=== PATIENT | male | born 1955 | race Caucasian/White ===

== ENCOUNTER 2020-02-02 12:55 | Outpatient (REF) | payer MEDICARE, MEDICAID, SELFPAY ==
--- NOTE | 2020-02-02 12:27 | LYM_PTH ---
PATIENT: James Brown LOC: [facility] U#:[id number] AGE/SX: 64/M ROOM: RE02/02/[address]: Isac Quinones MD : 1955 BED: DIS: 02/02/2020 SPEC #: [id number] RECD: 02/02/20 13:10 STATUS: REFUGIO REQ #: [id number] FRANCISCO: 02/02/20 12:[address]: Isac Quinones DEPT: Surgical Specimen RECD BY: Maureen Wheeler ENTERED: 02/02/20 13:11 SP TYPE: LYM OTHR DR: Unknown,Unknown Tissues: 1 - LYMPH NODE BIOPSY 2 - FLOW CYTOMETRY NODE/TISSUE Procedures: GROSS AND MICRO LEVEL 4 IMMUNOPEROXIDASE STAIN FLOW CYTOMETRY LYMPHOMA PNL Comments: [id number] (FLOW - [id number]) (CYTOGENETICS - [id number]) (CYTOGENETICS - INSUFFICIENT FOR FISH STUDIES)
== END 2020-02-02 13:15 ==
LOC: LBN 12:55
PROVIDERS: Visit Provider Otolaryngology
DX: R59.0 Localized enlarged lymph nodes (principal); R22.1 Localized swelling, mass and lump, neck; C83.31 Diffuse large B-cell lymphoma, lymph nodes of head, face, and neck
CPT/HCPCS: 88305; 88184; 88185; 88304; 88361

== ENCOUNTER 2020-03-07 04:13 | Outpatient (RCR) | payer MEDICARE, MEDICAID, SELFPAY ==
[2020-03-07 13:13] LABS: Abs Immature Grans 0.06 k/cumm (0.0-0.09); Absolute Basophil Count 0.05 k/cumm (0.0-0.2); Absolute Eosinophil Count 0.12 k/cumm (0.0-0.7); Absolute Lymphocyte Count 2.91 k/cumm (1.2-3.4); Absolute Monocyte Count 0.87 k/cumm (0.11-0.7); Basophils % 0.5; Eosinophils % 1.1; HCT 44.5 % (40.0-50.0); HGB 15.4 g/dL (13.5-17.5); Immature Grans % 0.6 %; Lymphocytes % 26.7; Mean Corp. HGB Concentration 34.6 g/dL (32.0-36.0); Mean Corpuscular Hemoglobin 31.6 pg (27.0-33.0); Mean Corpuscular Volume 91.2 fL (80-95); Mean Platelet Volume 9.9 fL (8.0-11.0); Neutrophils % 63.1; Platelet Count 195 x1000/uL (130-400); RBC 4.88 m/cumm (4.50-6.00); RBC Distribution Width 12.4 % (11.8-14.1); White Blood Cell Count 10.89 k/cumm (4.4-10.8)
[2020-03-07 13:15] LABS: Absolute Neutrophil Count 6.87 k/cumm (1.2-6.7)
[2020-03-07 13:50] LABS: ALT 46 U/L (16-63); AST 38 U/L (15-37); Albumin 3.5 g/dL (3.4-5.0); Alkaline Phosphatase 103 U/L (46-116); Anion Gap 8.7 mmol/L (3-11); BUN 24 mg/dL (7-18); Bilirubin, Total 1.3 mg/dL (0.2-1.0); CO2 26.3 mmol/L (21.0-32.0); CREATININE 0.88 mg/dL (0.70-1.30); Calcium 9.2 mg/dL (8.5-10.1); Chloride 99 mmol/L (98-107); Glucose 83 mg/dL (74-106); LDH 470 U/L (85-227); Potassium 3.8 mmol/L (3.5-5.1); Sodium 134 mmol/L (136-145); Total Protein 7.1 g/dL (6.4-8.2); Uric Acid 4.7 mg/dL (3.5-7.2)
[2020-03-08 09:10] LABS: HBs Antibody, Quant <3.1 mIU/mL (See Note); Hepatitis B Surface Ab Negative (See Note); Hepatitis B Surface Ag Negative (Negative)
[2020-03-08 10:06] LABS: Hep B Core Antibody Positive (Negative); Hepatitis C Ab w Rflx HCV PCR Reactive (Negative)
[2020-03-08 10:20] LABS: HIV-1/2 Ag & Ab Screen Negative (Negative)
[2020-03-08 11:23] LABS: IgA 410 mg/dL (85-499); IgG 718 mg/dL (610-1,616); IgM 255 mg/dL (35-242)
[2020-03-09 16:22] LABS: Albumin 56.4 % (55.8-66.1); Comment (See Note); Total Protein 6.7 g/dL (6.3-8.2)
[2020-03-12 15:12] LABS: HCV RNA Qualitative Detected (Undetected)
[2020-03-12 15:35] LABS: Immunotyping, Serum (See Note)
== END 2020-03-08 23:59 | disposition home or self-care (01) ==
LOC: INF 04:13
PROVIDERS: Visit Provider Internal Medicine Hematology & Oncology
DX: C83.38 Diffuse large B-cell lymphoma, lymph nodes of multiple sites (principal); Z45.2 Encounter for adjustment and management of vascular access device
CPT/HCPCS: 36591; 80053; 82784; 86704; 86706; 86803; 87340; 87389; 87522; 83615; 84165; 84550; 85025; 86320

== ENCOUNTER 2020-03-30 11:00 | Outpatient (RCR) | payer MEDICARE, MEDICAID, SELFPAY ==
[2020-03-14] MEDS: Normal Saline Flush 10 ML SYR IVP ×2 (07:15→09:54)
[2020-03-14 07:18] LABS: Abs Immature Grans 0.03 k/cumm (0.0-0.09); Absolute Basophil Count 0.02 k/cumm (0.0-0.2); Absolute Eosinophil Count 0.23 k/cumm (0.0-0.7); Absolute Lymphocyte Count 2.42 k/cumm (1.2-3.4); Absolute Monocyte Count 0.69 k/cumm (0.11-0.7); Absolute Neutrophil Count 5.17 k/cumm (1.2-6.7); Basophils % 0.2; Eosinophils % 2.7; HCT 44.6 % (40.0-50.0); HGB 15.6 g/dL (13.5-17.5); Immature Grans % 0.4 %; Lymphocytes % 28.3; Mean Corpuscular Hemoglobin 31.5 pg (27.0-33.0); Mean Corpuscular Volume 89.9 fL (80-95); Monocytes % 8.1; Neutrophils % 60.3; Platelet Count 223 x1000/uL (130-400); RBC 4.96 m/cumm (4.50-6.00); RBC Distribution Width 12.4 % (11.8-14.1); White Blood Cell Count 8.56 k/cumm (4.4-10.8)
[2020-03-14 07:27] LABS: ALT 51 U/L (16-63); AST 42 U/L (15-37); Albumin 3.5 g/dL (3.4-5.0); Alkaline Phosphatase 106 U/L (46-116); Anion Gap 7.1 mmol/L (3-11); BUN 16 mg/dL (7-18); Bilirubin, Total 0.9 mg/dL (0.2-1.0); CO2 27.9 mmol/L (21.0-32.0); Chloride 103 mmol/L (98-107); Glucose 103 mg/dL (74-106); LDH 579 U/L (85-227); Potassium 4.2 mmol/L (3.5-5.1); Sodium 138 mmol/L (136-145); Total Protein 7.2 g/dL (6.4-8.2)
[2020-03-14] MEDS: Heparin 500 UNITS/5 ML SYRINGE IV (09:54)
[2020-03-17 01:18] LABS: HBV DNA Detect/Quant, PCR Undetected IU/mL (Undetected)
[2020-03-17 03:48] LABS: HCV Genotype 1a (Undetected)
[2020-03-21] MEDS: Normal Saline Flush 10 ML SYR IVP (07:44)
[2020-03-21 07:52] LABS: Abs Immature Grans 0.12 k/cumm (0.0-0.09); Absolute Basophil Count 0.01 k/cumm (0.0-0.2); Absolute Eosinophil Count 0.06 k/cumm (0.0-0.7); Absolute Lymphocyte Count 3.25 k/cumm (1.2-3.4); Absolute Monocyte Count 1.31 k/cumm (0.11-0.7); Basophils % 0.1; Eosinophils % 0.5; HCT 46.3 % (40.0-50.0); Lymphocytes % 26.2; Mean Corp. HGB Concentration 34.6 g/dL (32.0-36.0); Mean Corpuscular Hemoglobin 30.9 pg (27.0-33.0); Mean Corpuscular Volume 89.6 fL (80-95); Mean Platelet Volume 8.8 fL (8.0-11.0); Monocytes % 10.6; Neutrophils % 61.6; Platelet Count 280 x1000/uL (130-400); RBC 5.17 m/cumm (4.50-6.00); RBC Distribution Width 12.6 % (11.8-14.1); White Blood Cell Count 12.39 k/cumm (4.4-10.8)
[2020-03-21 08:00] LABS: Absolute Neutrophil Count 7.63 k/cumm (1.2-6.7)
[2020-03-21 08:07] LABS: ALT 101 U/L (16-63); AST 56 U/L (15-37); Albumin 3.7 g/dL (3.4-5.0); Alkaline Phosphatase 105 U/L (46-116); Anion Gap 6.6 mmol/L (3-11); BUN 25 mg/dL (7-18); Bilirubin, Total 1.4 mg/dL (0.2-1.0); CO2 29.4 mmol/L (21.0-32.0); CREATININE 1.17 mg/dL (0.70-1.30); Calcium 9.5 mg/dL (8.5-10.1); Chloride 102 mmol/L (98-107); Glucose 85 mg/dL (74-106); LDH 374 U/L (85-227); Potassium 3.5 mmol/L (3.5-5.1); Sodium 138 mmol/L (136-145); Total Protein 7.3 g/dL (6.4-8.2)
[2020-03-27 13:26] LABS: Absolute Eosinophil Count 0.13 k/cumm (0.0-0.7); HCT 40.6 % (40.0-50.0); HGB 13.9 g/dL (13.5-17.5); Mean Corp. HGB Concentration 34.2 g/dL (32.0-36.0); Mean Corpuscular Hemoglobin 31.6 pg (27.0-33.0); Mean Corpuscular Volume 92.3 fL (80-95); RBC Distribution Width 12.7 % (11.8-14.1); White Blood Cell Count 3.17 k/cumm (4.4-10.8)
[2020-03-27 13:35] LABS: ALT 51 U/L (16-63); AST 28 U/L (15-37); Alkaline Phosphatase 139 U/L (46-116); Anion Gap 7.6 mmol/L (3-11); BUN 26 mg/dL (7-18); Bilirubin, Total 0.5 mg/dL (0.2-1.0); CO2 26.4 mmol/L (21.0-32.0); CREATININE 0.93 mg/dL (0.70-1.30); Calcium 8.7 mg/dL (8.5-10.1); Chloride 104 mmol/L (98-107); Glucose 105 mg/dL (74-106); LDH 229 U/L (85-227); Potassium 3.7 mmol/L (3.5-5.1); Sodium 138 mmol/L (136-145); Total Protein 6.1 g/dL (6.4-8.2)
[2020-03-27] MEDS: Normal Saline Flush 10 ML SYR IVP (13:36)
[2020-03-27] MEDS: Heparin 500 UNITS/5 ML SYRINGE IV (13:37)
[2020-03-27 14:20] LABS: Absolute Lymphocyte Count 1.39 k/cumm (1.2-3.4); Absolute Monocyte Count 0.25 k/cumm (0.11-0.7); Absolute Neutrophil Count 1.39 k/cumm (1.2-6.7); Atypical Lymphocytes % 2; Platelet Count 84 x1000/uL (130-400)
[2020-03-27 14:21] LABS: Diff Comment Diff Reviewed; Promyelocytes % 0 %
[2020-03-27 14:22] LABS: RBC Morphology Normal
[2020-03-30 11:23] LABS: HCT 41.4 % (40.0-50.0); HGB 14.3 g/dL (13.5-17.5); Mean Corp. HGB Concentration 34.5 g/dL (32.0-36.0); Mean Corpuscular Hemoglobin 31.4 pg (27.0-33.0); Mean Platelet Volume 9.5 fL (8.0-11.0); Platelet Count 176 x1000/uL (130-400); RBC 4.55 m/cumm (4.50-6.00); RBC Distribution Width 12.5 % (11.8-14.1); White Blood Cell Count 11.32 k/cumm (4.4-10.8)
[2020-03-30] MEDS: Normal Saline Flush 10 ML SYR IVP (11:30)
[2020-03-30] MEDS: Heparin 500 UNITS/5 ML SYRINGE IV (11:30)
[2020-03-30 11:45] LABS: Absolute Lymphocyte Count 2.26 k/cumm (1.2-3.4); Absolute Neutrophil Count 6.68 k/cumm (1.2-6.7); Atypical Lymphocytes % 3
[2020-03-30 11:46] LABS: Absolute Monocyte Count 0.57 k/cumm (0.11-0.7)
[2020-03-30 11:47] LABS: Other Cells 2
[2020-03-30 11:48] LABS: Diff Comment Manual Differential; RBC Morphology Normal
[2020-04-03 10:19] LABS: Promyelocytes % 2 %
== END 2020-04-08 23:59 | disposition home or self-care (01) ==
LOC: INF 11:00
PROVIDERS: Visit Provider Internal Medicine Hematology & Oncology
DX: C83.38 Diffuse large B-cell lymphoma, lymph nodes of multiple sites (principal); B18.2 Chronic viral hepatitis C; Z45.2 Encounter for adjustment and management of vascular access device
CPT/HCPCS: 36591; 80053; 87517; 83615; 84550; 85025; 87521

== ENCOUNTER 2020-05-02 01:52 | Outpatient (RCR) | payer MEDICARE, MEDICAID, SELFPAY ==
[2020-04-11 08:46] LABS: Abs Immature Grans 0.06 k/cumm (0.0-0.09); Absolute Basophil Count 0.18 k/cumm (0.0-0.2); Absolute Eosinophil Count 0.09 k/cumm (0.0-0.7); Absolute Lymphocyte Count 2.54 k/cumm (1.2-3.4); Absolute Monocyte Count 1.16 k/cumm (0.11-0.7); Absolute Neutrophil Count 6.44 k/cumm (1.2-6.7); Basophils % 1.7; Eosinophils % 0.9; HCT 41.6 % (40.0-50.0); HGB 14.4 g/dL (13.5-17.5); Immature Grans % 0.6 %; Lymphocytes % 24.3; Mean Corp. HGB Concentration 34.6 g/dL (32.0-36.0); Mean Corpuscular Hemoglobin 31.3 pg (27.0-33.0); Mean Corpuscular Volume 90.4 fL (80-95); Mean Platelet Volume 8.5 fL (8.0-11.0); Monocytes % 11.1; Neutrophils % 61.4; Platelet Count 470 x1000/uL (130-400); RBC Distribution Width 13.2 % (11.8-14.1); White Blood Cell Count 10.47 k/cumm (4.4-10.8)
[2020-04-11] MEDS: Normal Saline Flush 10 ML SYR 30 ML IVP (08:58)
[2020-04-11 09:01] LABS: ALT 27 U/L (16-63); AST 19 U/L (15-37); Albumin 3.6 g/dL (3.4-5.0); Alkaline Phosphatase 102 U/L (46-116); Anion Gap 10.2 mmol/L (3-11); BUN 21 mg/dL (7-18); Bilirubin, Total 0.8 mg/dL (0.2-1.0); CO2 24.8 mmol/L (21.0-32.0); CREATININE 0.99 mg/dL (0.70-1.30); Chloride 100 mmol/L (98-107); Glucose 79 mg/dL (74-106); LDH 203 U/L (85-227); Sodium 135 mmol/L (136-145); Total Protein 7.7 g/dL (6.4-8.2); Uric Acid 6.3 mg/dL (3.5-7.2)
[2020-04-12 09:44] LABS: Hepatitis B Surface Ag Negative (Negative)
[2020-05-02] MEDS: Normal Saline Flush 10 ML SYR 30 ML IVP (08:10)
[2020-05-02 08:21] LABS: Abs Immature Grans 0.04 k/cumm (0.0-0.09); Absolute Basophil Count 0.08 k/cumm (0.0-0.2); Absolute Eosinophil Count 0.05 k/cumm (0.0-0.7); Absolute Lymphocyte Count 1.06 k/cumm (1.2-3.4); Absolute Monocyte Count 1.24 k/cumm (0.11-0.7); Absolute Neutrophil Count 5.66 k/cumm (1.2-6.7); Eosinophils % 0.6; HCT 37.6 % (40.0-50.0); HGB 13.1 g/dL (13.5-17.5); Immature Grans % 0.5 %; Mean Corp. HGB Concentration 34.8 g/dL (32.0-36.0); Mean Corpuscular Volume 91.9 fL (80-95); Mean Platelet Volume 8.9 fL (8.0-11.0); Monocytes % 15.3; Neutrophils % 69.6; Platelet Count 342 x1000/uL (130-400); RBC 4.09 m/cumm (4.50-6.00); White Blood Cell Count 8.13 k/cumm (4.4-10.8)
[2020-05-02 08:33] LABS: ALT 25 U/L (16-63); AST 20 U/L (15-37); Albumin 3.6 g/dL (3.4-5.0); Alkaline Phosphatase 88 U/L (46-116); Anion Gap 8.8 mmol/L (3-11); BUN 14 mg/dL (7-18); Bilirubin, Total 0.5 mg/dL (0.2-1.0); CO2 26.2 mmol/L (21.0-32.0); CREATININE 0.89 mg/dL (0.70-1.30); Calcium 8.8 mg/dL (8.5-10.1); Chloride 103 mmol/L (98-107); Glucose 98 mg/dL (74-106); LDH 162 U/L (85-227); Potassium 3.9 mmol/L (3.5-5.1); Sodium 138 mmol/L (136-145); Total Protein 7.4 g/dL (6.4-8.2)
[2020-05-03 09:20] LABS: Hepatitis B Surface Ag Negative (Negative)
== END 2020-05-08 23:59 | disposition home or self-care (01) ==
LOC: INF 01:52
PROVIDERS: Visit Provider Internal Medicine Hematology & Oncology
DX: C83.38 Diffuse large B-cell lymphoma, lymph nodes of multiple sites (principal); Z45.2 Encounter for adjustment and management of vascular access device
CPT/HCPCS: 36591; 80053; 87340; 83615; 84550; 85025

== ENCOUNTER 2020-05-30 02:58 | Outpatient (RCR) | payer MEDICARE, MEDICAID, SELFPAY ==
[2020-05-23] MEDS: Normal Saline Flush 10 ML SYR IVP (08:49)
[2020-05-23 08:54] LABS: Abs Immature Grans 0.04 k/cumm (0.0-0.09); Absolute Basophil Count 0.09 k/cumm (0.0-0.2); Absolute Eosinophil Count 0.03 k/cumm (0.0-0.7); Absolute Lymphocyte Count 1.21 k/cumm (1.2-3.4); Absolute Monocyte Count 0.96 k/cumm (0.11-0.7); Absolute Neutrophil Count 3.59 k/cumm (1.2-6.7); Basophils % 1.5; Eosinophils % 0.5; HCT 36.2 % (40.0-50.0); HGB 12.3 g/dL (13.5-17.5); Immature Grans % 0.7 %; Lymphocytes % 20.4; Mean Corpuscular Hemoglobin 32.2 pg (27.0-33.0); Mean Corpuscular Volume 94.8 fL (80-95); Mean Platelet Volume 8.3 fL (8.0-11.0); Monocytes % 16.2; Neutrophils % 60.7; Platelet Count 364 x1000/uL (130-400); RBC 3.82 m/cumm (4.50-6.00); RBC Distribution Width 15.3 % (11.8-14.1); White Blood Cell Count 5.92 k/cumm (4.4-10.8)
[2020-05-23 09:02] LABS: ALT 24 U/L (16-63); AST 31 U/L (15-37); Albumin 3.3 g/dL (3.4-5.0); Alkaline Phosphatase 77 U/L (46-116); Anion Gap 6.8 mmol/L (3-11); BUN 14 mg/dL (7-18); Bilirubin, Total 0.4 mg/dL (0.2-1.0); CO2 28.2 mmol/L (21.0-32.0); CREATININE 0.82 mg/dL (0.70-1.30); Calcium 8.7 mg/dL (8.5-10.1); Chloride 102 mmol/L (98-107); Glucose 101 mg/dL (74-106); LDH 189 U/L (85-227); Potassium 3.8 mmol/L (3.5-5.1); Sodium 137 mmol/L (136-145); Total Protein 7.1 g/dL (6.4-8.2)
[2020-05-24 09:24] LABS: Hepatitis B Surface Ag Negative (Negative)
[2020-05-24 11:11] LABS: HBs Antibody, Quant <3.1 mIU/mL (See Note); Hep B Surface Ab Negative (See Note); Hepatitis B Core Antibody Positive (Negative); Hepatitis B Surface Antigen Negative (Negative)
[2020-05-24 11:22] LABS: Hepatitis C Ab w Rflx HCV PCR Reactive (Negative)
[2020-05-25 13:29] LABS: HCV RNA Qualitative Undetected (Undetected)
[2020-05-28 17:41] LABS: HBV DNA Detect/Quant, PCR Undetected IU/mL (Undetected)
[2020-05-30 09:01] LABS: Abs Immature Grans 0.02 k/cumm (0.0-0.09); Absolute Basophil Count 0.07 k/cumm (0.0-0.2); Absolute Eosinophil Count 0.11 k/cumm (0.0-0.7); Absolute Lymphocyte Count 1.52 k/cumm (1.2-3.4); Absolute Monocyte Count 0.82 k/cumm (0.11-0.7); Absolute Neutrophil Count 4.19 k/cumm (1.2-6.7); Eosinophils % 1.6; HCT 37.8 % (40.0-50.0); HGB 12.7 g/dL (13.5-17.5); Immature Grans % 0.3 %; Lymphocytes % 22.6; Mean Corp. HGB Concentration 33.6 g/dL (32.0-36.0); Mean Corpuscular Hemoglobin 32.2 pg (27.0-33.0); Mean Corpuscular Volume 95.9 fL (80-95); Mean Platelet Volume 8.6 fL (8.0-11.0); Monocytes % 12.2; Neutrophils % 62.3; Platelet Count 320 x1000/uL (130-400); RBC 3.94 m/cumm (4.50-6.00); RBC Distribution Width 15.2 % (11.8-14.1); White Blood Cell Count 6.73 k/cumm (4.4-10.8)
[2020-05-30] MEDS: Normal Saline Flush 10 ML SYR IVP (09:01)
[2020-05-30 09:11] LABS: ALT 25 U/L (16-63); AST 23 U/L (15-37); Albumin 3.6 g/dL (3.4-5.0); Alkaline Phosphatase 70 U/L (46-116); Anion Gap 8.2 mmol/L (3-11); BUN 13 mg/dL (7-18); Bilirubin, Total 0.6 mg/dL (0.2-1.0); CO2 27.8 mmol/L (21.0-32.0); CREATININE 0.87 mg/dL (0.70-1.30); Calcium 8.8 mg/dL (8.5-10.1); Chloride 103 mmol/L (98-107); Glucose 92 mg/dL (74-106); LDH 210 U/L (85-227); Potassium 4.1 mmol/L (3.5-5.1); Sodium 139 mmol/L (136-145); Total Protein 7.3 g/dL (6.4-8.2)
[2020-05-31 13:49] LABS: HBs Antibody, Quant 5.3 mIU/mL (See Note); Hep B Surface Ab Negative (See Note); Hepatitis B Core Antibody Positive (Negative); Hepatitis B Surface Antigen Negative (Negative)
[2020-05-31 13:50] LABS: Hepatitis C Ab w Rflx HCV PCR Reactive (Negative)
[2020-06-01 13:10] LABS: HCV RNA Qualitative Undetected (Undetected)
== END 2020-06-08 23:59 | disposition home or self-care (01) ==
LOC: INF 02:58
PROVIDERS: Visit Provider Internal Medicine Hematology & Oncology
DX: B18.2 Chronic viral hepatitis C (principal); Z20.5 Contact with and (suspected) exposure to viral hepatitis; C83.38 Diffuse large B-cell lymphoma, lymph nodes of multiple sites; Z45.2 Encounter for adjustment and management of vascular access device
CPT/HCPCS: 36591; 80053; 86704; 86706; 86803; 87340; 87517; 87522; 83615; 85025

== ENCOUNTER 2020-06-20 02:28 | Outpatient (RCR) | payer MEDICARE, MEDICAID, SELFPAY ==
[2020-06-20] MEDS: Normal Saline Flush 10 ML SYR IVP (08:53)
[2020-06-20 08:59] LABS: Abs Immature Grans 0.04 10^3/uL (0.0-0.06); Absolute Eosinophil Count 0.02 10^3/uL (0.0-0.7); Absolute Lymphocyte Count 1.55 10^3/uL (1.2-3.4); Absolute Monocyte Count 0.94 10^3/uL (0.1-0.8); Absolute Neutrophil Count 3.52 10^3/uL (1.2-6.7); Basophils % 1.6; Eosinophils % 0.3; HCT 35.7 % (40.0-50.0); HGB 12.1 g/dL (13.5-17.5); Immature Grans % 0.6; Lymphocytes % 25.1; MCH 32.7 pg (27.0-33.0); MCHC 33.9 % (32.0-36.0); MCV 96.5 fL (80-95); MPV 8.3 fL (8.0-11.0); Monocytes % 15.2; Neutrophils % 57.2; Nucleated RBC 0 %; Platelet Count 306 10^3/uL (130-400); RDW 14.1 % (11.8-14.1); RDW-SD 49.8 fL; WBC 6.17 10^3/uL (4.4-10.8)
[2020-06-20 09:15] LABS: ALT 18 U/L (16-63); AST 14 U/L (15-37); Albumin 3.6 g/dL (3.4-5.0); Alkaline Phosphatase 67 U/L (46-116); Anion Gap 5.4 mmol/L (3-11); BUN 18 mg/dL (7-18); Bilirubin, Total 0.5 mg/dL (0.2-1.0); CO2 27.6 mmol/L (21.0-32.0); CREATININE 0.83 mg/dL (0.70-1.30); Calcium 9.1 mg/dL (8.5-10.1); Chloride 103 mmol/L (98-107); Glucose 91 mg/dL (74-106); LDH 119 U/L (85-227); Potassium 4.1 mmol/L (3.5-5.1); Sodium 136 mmol/L (136-145); Total Protein 7.3 g/dL (6.4-8.2); Uric Acid 5.1 mg/dL (3.5-7.2)
== END 2020-07-09 23:59 | disposition home or self-care (01) ==
LOC: INF 02:28
PROVIDERS: Visit Provider Internal Medicine Hematology & Oncology
DX: C83.38 Diffuse large B-cell lymphoma, lymph nodes of multiple sites (principal); Z45.2 Encounter for adjustment and management of vascular access device
CPT/HCPCS: 36591; 80053; 83615; 84550; 85025

== ENCOUNTER 2020-07-11 04:52 | Outpatient (RCR) | payer MEDICARE, MEDICAID, SELFPAY ==
[2020-07-11] MEDS: Normal Saline Flush 10 ML SYR IVP (08:41)
[2020-07-11 09:06] LABS: Abs Immature Grans 0.04 10^3/uL (0.0-0.06); Absolute Basophil Count 0.12 10^3/uL (0.0-0.2); Absolute Lymphocyte Count 1.64 10^3/uL (1.2-3.4); Absolute Monocyte Count 0.87 10^3/uL (0.1-0.8); Absolute Neutrophil Count 4.17 10^3/uL (1.2-6.7); Basophils % 1.8; HCT 34.5 % (40.0-50.0); HGB 11.8 g/dL (13.5-17.5); Immature Grans % 0.6; MCH 33.1 pg (27.0-33.0); MCHC 34.2 % (32.0-36.0); MCV 96.9 fL (80-95); MPV 8.8 fL (8.0-11.0); Monocytes % 12.7; Neutrophils % 60.9; Nucleated RBC 0 %; Platelet Count 340 10^3/uL (130-400); RBC 3.56 10^6/uL (4.36-5.78); RDW 14.2 % (11.8-14.1); RDW-SD 49.1 fL; WBC 6.84 10^3/uL (4.4-10.8)
[2020-07-11 09:24] LABS: ALT 17 U/L (16-63); AST 14 U/L (15-37); Albumin 3.7 g/dL (3.4-5.0); Alkaline Phosphatase 74 U/L (46-116); Anion Gap 8.8 mmol/L (3-11); BUN 11 mg/dL (7-18); Bilirubin, Total 0.5 mg/dL (0.2-1.0); CO2 27.2 mmol/L (21.0-32.0); CREATININE 0.87 mg/dL (0.70-1.30); Calcium 9.2 mg/dL (8.5-10.1); Chloride 103 mmol/L (98-107); Glucose 93 mg/dL (74-106); LDH 137 U/L (85-227); Sodium 139 mmol/L (136-145); Total Protein 7.6 g/dL (6.4-8.2)
[2020-07-12 09:19] LABS: HBs Antibody, Quant <3.1 mIU/mL (See Note); Hepatitis B Surface Ab Negative (See Note)
[2020-07-12 09:29] LABS: Hepatitis B Surface Ag Negative (Negative)
[2020-07-12 10:02] LABS: Hepatitis C Ab w Rflx HCV PCR Reactive (Negative)
[2020-07-13 14:51] LABS: HCV RNA Qualitative Undetected (Undetected)
== END 2020-08-08 23:59 | disposition home or self-care (01) ==
LOC: INF 04:52
PROVIDERS: Visit Provider Internal Medicine Hematology & Oncology
DX: C83.38 Diffuse large B-cell lymphoma, lymph nodes of multiple sites (principal); Z45.2 Encounter for adjustment and management of vascular access device
CPT/HCPCS: 36591; 80053; 86706; 86803; 87340; 87522; 83615; 85025; 86704